=== PATIENT | male | born 1975 | race Caucasian/White ===

== ENCOUNTER 2017-01-15 09:48 | Emergency (ER) | payer MEDICAID ==
[~2017-01-15] VITALS: Ht 175.3 cm; Wt 104.3 kg
[2017-01-15 09:56] VITALS: BP 138/91
== END 2017-01-15 11:03 | disposition home or self-care (01) ==
LOC: ED 09:48
DX: K12.2 Cellulitis and abscess of mouth (principal)
CPT/HCPCS: J1200; J7512